=== PATIENT | female | born 1990 | race Caucasian/White ===

== ENCOUNTER 2016-06-27 18:15 | Emergency (ER) | payer SELFPAY ==
[~2016-06-27 18:15] MED LIST: TOBR5DRO6 AS
[2016-06-27 18:28] VITALS: BP 130/77
[2016-06-27] MEDS ORDERED: IV NORMAL SALINE 1000ML BAG 1,000 ML IV ONE (19:00)
[2016-06-27] MEDS ORDERED: METOCLOPRAMIDE HCL 10 MG/2 ML VIAL. IV ONE (19:00)
[2016-06-27] MEDS ORDERED: DIPHENHYDRAMINE 50 MG/ML VIAL IVP ONE (19:00)
[2016-06-27 19:27] LABS: NEG OBC UR NEG; POS OBC UR POS
--- NOTE | 2016-06-27 20:26 | PHYS DOC ---
Past Medical History Past Medical History: Asthma, Migraines, Other Additional Past Medical Histor: murmur Past Surgical History: Appendectomy, Additional Past Surgical Histo: umbilical hernia Alcohol Use: None Drug Use: None Adult General Chief Complaint Chief Complaint: HEADACHE HPI HPI 18-year-old female presenting to the emergency department with a migraine for 4 days. She reports is similar to her previous headaches. Vision changes or numbness weakness or tingling. She denies it being thunderclap headache. Her pain is sharp severe nonradiating and without alleviating factors. She is tried acetaminophen without relief. Review of Systems Review of Systems Negative for numbness weakness tingling chest pain shortness of breath. All other review of systems is negative unless otherwise noted in history of present illness. Current Medications Current Medications Current Medications Medications (Trade) Dose Ordered Sig/[place] Start Time Stop Time Status Last Admin Dose Admin Diphenhydramine HCl 50 mg 50 mg 1X ONCE 06/27/16 19:00 06/27/16 19:02 DC 06/27/16 19:10 50 MG Metoclopramide HCl (Reglan) 20 mg 1X ONCE 06/27/16 19:00 06/27/16 19:02 DC 06/27/16 19:10 20 MG Sodium Chloride (Iv Sodium Chloride 0.9% 1000ml Bag) 1,000 ml @ 1,000 mls/hr 1X ONCE 06/27/16 19:00 06/27/16 19:59 DC 06/27/16 19:11 1,000 MLS/HR Allergies Allergies Allergies Coded Allergies Type Severity Reaction Last Updated Verified acetaminophen Allergy Intermediate 07/05/15 No propoxyphene Allergy Intermediate 07/05/15 No zolpidem Allergy Intermediate 07/05/15 No Physical Exam Physical Exam Constitutional: Well developed, well nourished, no acute distress, non-toxic appearance. [] HENT: Normocephalic, atraumatic, bilateral external ears normal, oropharynx moist, no oral exudates, nose normal. [] Eyes: PERRLA, EOMI, conjunctiva normal, no discharge. [] Neck: Normal range of motion, no tenderness, supple, no stridor. [] Cardiovascular:Heart rate regular rhythm, no murmur [] Lungs & Thorax: Bilateral breath sounds clear to auscultation [] Abdomen: Bowel sounds normal, soft, no tenderness, no masses, no pulsatile masses. [] Skin: Warm, dry, no erythema, no rash. [] Back: No tenderness, no CVA tenderness. [] Extremities: No tenderness, no cyanosis, no clubbing, ROM intact, no edema. [] Neurologic: Neuro exam: Mental status: Awake oriented and alert x3 Cranial nerves: Extraocular movements intact, eyebrows lex bilaterally smile symmetric, uvula elevation, shoulder shrug intact, tongue protrusion normal Sensation: equal and normal in all extremities Strength: 5/5 in upper and lower extremities bilaterally Psychologic: Affect normal, judgement normal, mood normal. [] Current Patient Data Vital Signs Vital Signs Date Time Temp Pulse Resp B/P Pulse Ox O2 Delivery O2 Flow Rate FiO2 06/27/16 18:28 98.2 83 16 130/77 100 Room Air 98.2 Lab Values Laboratory Tests Test 06/27/16 18:25 Urine Test Negative (NEG) EKG EKG [] Radiology/Procedures Radiology/Procedures [] Course & Med Decision Making Course & Med Decision Making Pertinent Labs and Imaging studies reviewed. (See chart for details) [] 18-year-old female presenting with migraine similar to previous migraines. Minimal neurologic exam. Patient was treated with IV fluids along with Reglan and Benadryl. On reevaluation her symptoms had improved and she was subsequent discharged home to follow up with her PCP. Dragon Disclaimer Dragon Disclaimer This electronic medical record was generated, in whole or in part, using a voice recognition dictation system. Departure Departure Impression: Primary Impression: Migraine Disposition: 01 HOME, SELF-CARE Condition: STABLE Referrals: BANG ROMAN MD (PCP) Patient Instructions: Migraine Headache Additional Instructions: Thank you for allowing us to participate in your care today. Followup with your primary care physician in 3 days if your symptoms do not improve. If you do not have a primary care provider you can ask for a list of our primary care providers. Return to the emergency department you have any new or concerning findings. This should be evaluated by the primary care physician and any necessary consulting services for continued management within a few days after discharge. Return to emergency room if you have any new or concerning symptoms including but not limited to fever, chills, nausea, vomiting, intractable pain, any new rashes, chest pain, shortness of air, uncontrolled bleeding, difficulty breathing, and/or vision loss. ARYA STRAUSS MD Jun 27, 2016 20:26
== END 2016-06-27 20:33 | disposition home or self-care (01) ==
LOC: ER 18:15
DX: G43.909 Migraine, unspecified, not intractable, without status migrainosus (principal); J45.909 Unspecified asthma, uncomplicated; Z90.49 Acquired absence of other specified parts of digestive tract; Z88.8 Allergy status to other drugs, medicaments and biological substances
CPT/HCPCS: 81025; 96361; 96374; 96375; 99284; J1200; J2765; J7030

== ENCOUNTER 2017-03-10 08:54 | Emergency (ER) | payer SELFPAY ==
[~2017-03-10] VITALS: Ht 160 cm; Wt 63.5 kg
[2017-03-10 09:08] VITALS: BP 115/65
[2017-03-10] MEDS ORDERED: IBUP-1060 PO (09:56)
--- NOTE | 2017-03-10 09:56 | PHYS DOC ---
Past Medical History Past Medical History: Asthma, Migraines, Other Additional Past Medical Histor: murmur Past Surgical History: Appendectomy, , Other Additional Past Surgical Histo: umbilical hernia Additional Information: 0.5 PPD Alcohol Use: None Drug Use: None Adult General Chief Complaint Chief Complaint: Neck Pain HPI HPI Patient is a 27 year old female who presents with history of asthma who presents with multiple medical head that she noted yesterday. Patient denies any fever. Denies any sore throat coughing or congestion. Denies any ear pain. Review of Systems Review of Systems Constitutional: Denies fever or chills [] Eyes: Denies change in visual acuity, redness, or eye pain [] HENT:Knot on the back of the head. Denies nasal congestion or sore throat [] Respiratory: Denies cough or shortness of breath [] Cardiovascular: No additional information not addressed in HPI [] GI: Denies abdominal pain, nausea, vomiting, bloody stools or diarrhea [] : Denies dysuria or hematuria [] Musculoskeletal: Denies back pain or joint pain [] Integument: Denies rash or skin lesions [] Neurologic: Denies headache, focal weakness or sensory changes [] Endocrine: Denies polyuria or polydipsia [] Allergies Allergies Allergies Coded Allergies Type Severity Reaction Last Updated Verified acetaminophen Allergy Intermediate 07/05/15 No propoxyphene Allergy Intermediate 07/05/15 No zolpidem Allergy Intermediate 07/05/15 No Physical Exam Physical Exam Constitutional: Well developed, well nourished, no acute distress, non-toxic appearance. [] HENT: Normocephalic, atraumatic, bilateral external ears normal, oropharynx moist, no oral exudates, nose normal. [] Right posterior occipital with a tiny indurated consistent of enlarged lymph node. The area is tender to touch but not erythematous or fluctuance. Eyes: PERRLA, EOMI, conjunctiva normal, no discharge. [] Neck: Normal range of motion, no tenderness, supple, no stridor. [] Cardiovascular:Heart rate regular rhythm, no murmur [] Lungs & Thorax: Bilateral breath sounds clear to auscultation [] Abdomen: Bowel sounds normal, soft, no tenderness, no masses, no pulsatile masses. [] Skin: Warm, dry, no erythema, no rash. [] Back: No tenderness, no CVA tenderness. [] Extremities: No tenderness, no cyanosis, no clubbing, ROM intact, no edema. [] Neurologic: Alert and oriented X 3, normal motor function, normal sensory function, no focal deficits noted. [] Psychologic: Affect normal, judgement normal, mood normal. [] Current Patient Data Vital Signs Vital Signs Date Time Temp Pulse Resp B/P (MAP) Pulse Ox O2 Delivery O2 Flow Rate FiO2 03/10/17 09:08 98.1 93 16 115/65 (82) 98 Room Air 98.1 EKG EKG [] Radiology/Procedures Radiology/Procedures [] Course & Med Decision Making Course & Med Decision Making Pertinent Labs and Imaging studies reviewed. (See chart for details) Patient has a large right occipital lymphadenopathy. Discharged with ibuprofen. Instructed to follow-up with the PCP in one week if symptoms persist. Dragon Disclaimer Dragon Disclaimer This electronic medical record was generated, in whole or in part, using a voice recognition dictation system. Departure Departure Impression: Primary Impression: Lymphadenopathy of head and neck Disposition: 01 HOME, SELF-CARE Condition: STABLE Referrals: BANG ROMAN MD (PCP) Follow-up with your doctor in one week. Patient Instructions: General Headache Without Cause, [id number] Additional Instructions: You were seen for an enlarged lymph node on the back of your head. Please take ibuprofen 3 times a day. You can apply warm compresses to the area 3 times a day. Follow-up with your doctor in 1-2 weeks if symptoms continue. Scripts Ibuprofen (IBUPROFEN) 800 Mg Tablet 800 MG PO PRN Q6HRS Y for INFLAMMATION, #30 TAB Prov: MEAGAN AMADO APRN 03/10/17 MEAGAN AMADO APRN Mar 10, 2017 09:56
[2017-03-10 10:19] LABS: NEGATIVE OBC STREP NEG; POSITIVE OBC STREP POS
== END 2017-03-10 10:05 | disposition home or self-care (01) ==
LOC: ER 08:54
DX: R59.0 Localized enlarged lymph nodes (principal); J45.909 Unspecified asthma, uncomplicated; G43.909 Migraine, unspecified, not intractable, without status migrainosus; F17.200 Nicotine dependence, unspecified, uncomplicated; Z88.6 Allergy status to analgesic agent; Z88.8 Allergy status to other drugs, medicaments and biological substances
CPT/HCPCS: 87070; 87880; 99283

== ENCOUNTER 2017-09-14 22:22 | Emergency (ER) | payer SELFPAY, OTHER ==
[2017-09-14] MEDS: IPRATRPIUM/ALBUTEROL 0.5/2.5MG 3 ML NEBU. NEB ×2 (22:37→22:53)
== END 2017-09-14 23:19 | disposition home or self-care (01) ==
LOC: ER 23:19
DX: J45.21 Mild intermittent asthma with (acute) exacerbation (principal); G43.909 Migraine, unspecified, not intractable, without status migrainosus; Z88.6 Allergy status to analgesic agent; Z88.8 Allergy status to other drugs, medicaments and biological substances; Z79.899 Other long term (current) drug therapy; Z90.49 Acquired absence of other specified parts of digestive tract
CPT/HCPCS: 94640; 99284-25; J7620

== ENCOUNTER 2017-10-26 20:05 | Emergency (ER) | payer SELFPAY ==
[2017-10-26 20:59] LABS: URINE HCG POC HCG NEGATIVE (Negative)
[2017-10-26 21:10] LABS: BILIRUBIN,URINE SMALL (NEG); CLARITY,URINE CLEAR; GLUCOSE,URINE NEGATIVE (NEG); NITRITE,URINE NEGATIVE (NEG); PROTEIN,URINE 100 mg/dL (NEG-TRACE)
[2017-10-26] MEDS: PENICILLIN G BENZATHINE LA 1,200,000 UNIT/2 ML DISP.SYRIN. IM (21:12)
[2017-10-26 21:15] LABS: COLOR,URINE DK YELLOW
[2017-10-26 21:17] LABS: BACTERIA,URINE FEW /HPF (0-FEW); RBC,URINE 0 /HPF (0-2); SQUAMOUS EPITHELIAL CELL,UR MANY /LPF; WBC,URINE OCC /HPF (0-4)
[2017-10-26 21:25] LABS: INFLUENZA A PATIENT NEGATIVE (NEGATIVE); INFLUENZA B PATIENT NEGATIVE (NEGATIVE); OBC FLU VALID
[2017-10-27 06:15] LABS: NEGATIVE OBC STREP NEG; POSITIVE OBC STREP POS
== END 2017-10-26 21:19 | disposition home or self-care (01) ==
LOC: ER 21:19
DX: J02.0 Streptococcal pharyngitis (principal); G43.909 Migraine, unspecified, not intractable, without status migrainosus; Z90.89 Acquired absence of other organs
CPT/HCPCS: 81001; 81025; 87804; 87804-59; 87880; 96372; 99284; J0561

== ENCOUNTER 2019-01-06 15:13 | Emergency (ER) | payer SELFPAY ==
[~2019-01-06] VITALS: Ht 157.5 cm; Wt 76.2 kg
[~2019-01-06 15:13] MED LIST changes: +ALBU1.25 NEB; +ALBU2.5V8 INH; +IBUP-1060 PO; +PRED50TA PO
[2019-01-06 16:00] VITALS: BP 109/73
--- NOTE | 2019-01-06 16:52 | RAD ---
EXAM: Left knee, 4 views. HISTORY: Pain. COMPARISON: None. FINDINGS: 4 views left knee are obtained. There is no fracture, dislocation or subluxation. There is no joint effusion. There is a small bone island within the medial femoral condyle. There is a small ossific density anterior to the tibial spines of the lateral projection, likely a bony ridge rather than intra-articular osteophyte or loose body. IMPRESSION: No acute osseous finding. Electronically signed by: Naomy Cintron MD (01/06/2019 4:49 PM) [facility], [address]
--- NOTE | 2019-01-06 17:19 | PHYS DOC ---
Past Medical History Past Medical History: Asthma, Migraines, Other Additional Past Medical Histor: murmur Past Surgical History: Appendectomy, , Other Additional Past Surgical Histo: umbilical hernia Alcohol Use: None Drug Use: None Adult General Chief Complaint Chief Complaint: KNEE SWELLING HPI HPI Patient is a 28 year old female who presents with a sharp intermittent 8 out of 10 left anterior knee pain that began yesterday while walking her children at school. Patient denies falling. Patient states the pain is worse on flexion and extension of the knee. Patient states immobilization has relieved some of the pain. Review of Systems Review of Systems Constitutional: Denies fever or chills [] Musculoskeletal: Reports left knee pain Integument: Denies rash or skin lesions [] Neurologic: Denies headache, focal weakness or sensory changes [] All other systems were reviewed and found to be within normal limits, except as documented in this note. Allergies Allergies Allergies Coded Allergies Type Severity Reaction Last Updated Verified acetaminophen Allergy Intermediate 07/05/15 No propoxyphene Allergy Intermediate 07/05/15 No zolpidem Allergy Intermediate 07/05/15 No Physical Exam Physical Exam Constitutional: Well developed, well nourished, no acute distress, non-toxic appearance. [] Skin: Warm, dry, no erythema, no rash. [] Back: No tenderness, no CVA tenderness. [] Extremities: Left anterior knee with slight swelling, tenderness on palpation of the left anterior knee. Full range of motion to the left knee, negative Edu sign, negative Keegan sign, negative anterior-posterior drawer sign. +2 left pedal pulse. 2 seconds the left lower extremity. Neurologic: Alert and oriented X 3, normal motor function, normal sensory function, no focal deficits noted. [] Psychologic: Affect normal, judgement normal, mood normal. [] Current Patient Data Vital Signs Vital Signs Date Time Temp Pulse Resp B/P (MAP) Pulse Ox O2 Delivery O2 Flow Rate FiO2 01/06/19 16:00 98.1 99 18 109/73 (85) 96 Room Air 98.1 EKG EKG [] Radiology/Procedures Radiology/Procedures [] Course & Med Decision Making Course & Med Decision Making Pertinent Labs and Imaging studies reviewed. (See chart for details) This is a 28-year-old female patient presented to the ED today with left knee pain that began last night. No known injury. Left knee x-rays interpreted by radiologist are negative for any acute findings. Laci bandage recommended. Ice elevation encouraged. OTC pain relievers. Orthopedic doctor provided. Neftali Disclaimer Neftali Disclaimer This electronic medical record was generated, in whole or in part, using a voice recognition dictation system. Departure Departure Impression: Primary Impression: Left knee sprain Disposition: HOME, SELF-CARE Condition: STABLE Referrals: BANG ROMAN MD (PCP) EJLANI SAHNI MD Follow up in 1-2 weeks Patient Instructions: Knee Sprain, [id number] Additional Instructions: You were evaluated in the emergency room for left knee pain. Left knee x-rays we re negative for any acute findings. Try to ice and elevate the extremity. You can apply laci wrap to the knee as tolerated. Take [id number] pain relievers as needed for pain. Follow-up with your own doctor the provided orthopedic doctor in 1-2 weeks. Problem Qualifiers Primary Impression: Left knee sprain Encounter type: initial encounter Involved ligament of knee: unspecified ligament Qualified Codes: S83.92XA - Sprain of unspecified site of left knee, initial encounter MEAGAN AMADO [employer]ING [employer] Jan 06, 2019 17:19
== END 2019-01-06 17:27 | disposition home or self-care (01) ==
LOC: ER 15:13
DX: S83.92XA Sprain of unspecified site of left knee, initial encounter (principal); J45.909 Unspecified asthma, uncomplicated; G43.909 Migraine, unspecified, not intractable, without status migrainosus; Z88.8 Allergy status to other drugs, medicaments and biological substances; Z88.6 Allergy status to analgesic agent; X50.9XXA Other and unspecified overexertion or strenuous movements or postures, initial encounter; Y93.01 Activity, walking, marching and hiking; Y92.218 Other school as the place of occurrence of the external cause; Y99.8 Other external cause status
CPT/HCPCS: 73564; 99284

== ENCOUNTER 2019-02-08 19:10 | Emergency (ER) | payer SELFPAY ==
[~2019-02-08] VITALS: Ht 157.5 cm; Wt 74.8 kg
[2019-02-08 19:20] VITALS: BP 124/74
[2019-02-08] MEDS ORDERED: DEXAMETHASONE SOD PHOS 20 MG/5 ML VIAL. IV ONE (20:00)
[2019-02-08] MEDS ORDERED: KETOROLAC 15 MG/ML VIAL. IV ONE (20:00)
[2019-02-08] MEDS ORDERED: IV NORMAL SALINE 1000ML BAG 1,000 ML IV ONE (20:00)
[2019-02-08] MEDS ORDERED: diphenhydrAMINE 50 MG/ML VIAL IVP ONE (20:00)
[2019-02-08] MEDS ORDERED: METOCLOPRAMIDE HCL 10 MG/2 ML VIAL. IV ONE (20:00)
--- NOTE | 2019-02-08 20:13 | PHYS DOC ---
Past Medical History Past Medical History: Asthma, Migraines, Other Additional Past Medical Histor: murmur Past Surgical History: Appendectomy, , Other Additional Past Surgical Histo: umbilical hernia Alcohol Use: None Drug Use: None Adult General Chief Complaint Chief Complaint: HEADACHE HPI HPI Patient is a 28 year old migraine who presents with sore throat and generalized headache. Pt reports sore throat 2 days ago and developed cervicogenic SAGE started yesterday. Today, pt reports having some productive cough with green discharge. Pt also endorses mild ear pain b/l and fatigue and muscle ache. She denies any F/C, N/V. She took some Tylenol today which helped minimally. Her SAGE is not maximal at onset. Review of Systems Review of Systems Constitutional: Denies fever or chills Eyes: Denies redness or eye pain HENT: Positive nasal congestion and sore throat Respiratory: Positive cough. No shortness of breath Cardiovascular: Denies chest pain or palpitations GI: Denies abdominal pain, nausea, or vomiting : Denies dysuria or hematuria Musculoskeletal: Denies back pain or joint pain Integument: Denies rash or skin lesions Neurologic: Denies headache, focal weakness or sensory changes Complete systems were reviewed and found to be within normal limits, except as documented in this note. Current Medications Current Medications Current Medications Medications (Trade) Dose Ordered Sig/[place] Start Time Stop Time Status Last Admin Dose Admin Dexamethasone Sodium Phosphate (Decadron) 10 mg 1X ONCE 02/08/19 20:00 02/08/19 20:01 DC 02/08/19 20:21 10 MG Diphenhydramine HCl (Benadryl) 50 mg 1X ONCE 02/08/19 20:00 02/08/19 20:01 DC 02/08/19 20:21 50 MG Ketorolac Tromethamine (Toradol 15mg Vial) 15 mg 1X ONCE 02/08/19 20:00 02/08/19 20:01 DC 02/08/19 20:21 15 MG Metoclopramide HCl (Reglan Vial) 10 mg 1X ONCE 02/08/19 20:00 02/08/19 20:01 DC 02/08/19 20:21 10 MG Sodium Chloride 1,000 ml @ 1,000 mls/hr 1X ONCE 02/08/19 20:00 02/08/19 20:59 DC 02/08/19 20:21 1,000 MLS/HR Allergies Allergies Allergies Coded Allergies Type Severity Reaction Last Updated Verified acetaminophen Allergy Intermediate 07/05/15 No propoxyphene Allergy Intermediate 07/05/15 No zolpidem Allergy Intermediate 07/05/15 No Physical Exam Physical Exam Constitutional: Well developed, well nourished, no acute distress, non-toxic appearance HENT: Normocephalic, atraumatic, mildly erythematous and exudative oropharynx Eyes: PERRL, EOMI, conjunctiva normal, no discharge Neck: Normal range of motion, mild tenderness and LAD, supple Cardiovascular: Heart rate normal, regular rhythm Lungs & Thorax: Bilateral breath sounds clear to auscultation, no wheezing Abdomen: Soft, no tenderness Skin: Warm, dry, no erythema, no rash Back: No tenderness, no CVA tenderness Extremities: No tenderness, ROM intact, no edema Neurologic: Alert and oriented X 3, normal motor function, normal sensory function, no focal deficits noted Psychologic: Affect normal, judgement normal, mood normal Current Patient Data Vital Signs Vital Signs Date Time Temp Pulse Resp B/P (MAP) Pulse Ox O2 Delivery O2 Flow Rate FiO2 02/08/19 19:20 99.8 106 16 124/74 (91) 98 Room Air 99.8 Lab Values Laboratory Tests Test 02/08/19 19:32 02/08/19 20:11 POC Urine HCG, Qualitative Hcg negative (Negative) Heterophil Agglutinins Negative (NEGATIVE) EKG EKG [] Radiology/Procedures Radiology/Procedures [] Course & Med Decision Making Course & Med Decision Making Pertinent Labs and Imaging studies reviewed. (See chart for details) [] Dragon Disclaimer Dragon Disclaimer This electronic medical record was generated, in whole or in part, using a voice recognition dictation system. Departure Departure Impression: Primary Impression: Strep pharyngitis Additional Impression: Headache Disposition: 01 HOME, SELF-CARE Condition: STABLE Referrals: BANG ROMAN MD (PCP) Patient Instructions: Migraine Headache, [id number], Strep Throat, Group A Streptococcus Additional Instructions: You have been given a one time dose of a very strong antibiotic. No further antibiotic therapy is required. Problem Qualifiers Additional Impression: Headache Headache type: unspecified Headache chronicity pattern: acute headache Intractability: not intractable Qualified Codes: R51 - Headache GARRETT LOUIS DO Feb 08, 2019:13
[2019-02-08 20:26] LABS: MONONUCLEOSIS PATIENT NEGATIVE (NEGATIVE)
[2019-02-08] MEDS ORDERED: PENICILLIN G BENZATHINE LA 1,200,000 UNIT/2 ML DISP.SYRIN. IM ONE (21:30)
--- NOTE | 2019-02-08 22:31 | RAD ---
PA and lateral chest radiographs 02/08/2019 Clinical History: Cough. PA and lateral digital radiographs of the chest were obtained. Comparison study is dated 07/05/2015. The cardiac and mediastinal silhouettes are within normal limits in size and configuration. No pulmonary infiltrate is seen. No pleural effusion or pneumothorax is noted. The osseous structures are grossly intact. Impression: No radiographic evidence of active cardiopulmonary disease. Electronically signed by: Saúl Norton MD (02/08/2019 10:28 PM) [facility]
== END 2019-02-08 22:05 | disposition home or self-care (01) ==
LOC: ER 19:10
DX: J02.0 Streptococcal pharyngitis (principal); B95.0 Streptococcus, group A, as the cause of diseases classified elsewhere; G43.909 Migraine, unspecified, not intractable, without status migrainosus; J45.909 Unspecified asthma, uncomplicated; Z88.6 Allergy status to analgesic agent; Z88.8 Allergy status to other drugs, medicaments and biological substances
CPT/HCPCS: 71046; 81025; 86308; 87880; 96372; 96374; 96375; 99285; J0561; J1100; J1200; J1885; J2765; J7030

== ENCOUNTER 2020-12-28 16:33 | Emergency (ER) | payer SELFPAY ==
[~2020-12-28] VITALS: Ht 162.6 cm; Wt 76.2 kg
[~2020-12-28 16:33] MED LIST changes: +ALBU2.5V8 IH
[2020-12-28] MEDS ORDERED: NEOMYCIN/POLYMYXIN/HC OTIC SUSPENSION 10ML BOTTLE. AD ONE (20:30)
--- NOTE | 2020-12-28 20:35 | ED.ADGEN ---
Past Medical History Past Medical History: Asthma, Migraines, Other Additional Past Medical Histor: murmur Past Surgical History: Appendectomy, , Other Additional Past Surgical Histo: umbilical hernia Smoking Status: Current Every Day Smoker Alcohol Use: None Drug Use: None General Adult EDM: Chief Complaint: EARACHE/EAR PAIN HPI: HPI: Patient is a 30 year old female coming in for right ear pain over the past few days this is no worse today after she showered feeling she has water in it. Patient uses Q-tips regularly to try to "scrub out" her ears. Patient says the pain is worse with eating and pulling at her ear. Denies pain in the other ear. Patient has a history of recurrent ear infections as a child but never had tubes placed. No fever some complaints denies any congestion. Review of Systems: Review of Systems: All other systems within normal limits except for as noted in the HPI Current Medications: Current Medications Medications (Trade) Dose Ordered Sig/[place] Start Time Stop Time Status Last Admin Dose Admin Neomycin/ Polymyxin/ Hydrocortisone (Cortisporin Otic) 1 drop 1X ONCE 12/28/20 20:30 12/28/20 20:31 DC Allergies: Allergies: Allergies Coded Allergies Type Severity Reaction Last Updated Verified acetaminophen Allergy Intermediate 07/05/15 No propoxyphene Allergy Intermediate 07/05/15 No zolpidem Allergy Intermediate 07/05/15 No Physical Exam: PE: Constitutional: Well developed, well nourished, no acute distress, non-toxic appearance. [] HENT: Normocephalic, atraumatic, bilateral external ears normal, nose normal. Right TM erythematous without significant debris, cholesteatoma on TM without bulging or purulence. Left TM mildly erythematous, cholesteatoma on TM. No ma stoid erythema or bogginess, pain elicited by pulling on tragus [] Eyes: PERRLA, conjunctiva normal, no discharge. [] Neck: No rigidity, supple, no stridor. [] Cardiovascular: Regular rate and rhythm, brisk cap refill [] Lungs & Thorax: Non labored symmetric respirations, no tachypnea or respiratory distress [] Abdomen: Soft, nondistended. Skin: Warm, dry, no erythema, no rash. [] Back: Unremarkable Extremities: No deformities, range of motion grossly intact, no lower extremity edema [] Neurologic: Alert and oriented X 3, no focal deficits noted. [] Psychologic: Affect normal, judgement normal, mood normal. [] Current Patient Data: Vital Signs: Vital Signs Date Time Temp Pulse Resp B/P (MAP) Pulse Ox O2 Delivery O2 Flow Rate FiO2 12/28/20 17:26 98.6 89 16 113/68 (86) 96 Room Air 98.6 EKG: EKG: [] Heart Score: C/O Chest Pain: No Risk Factors: Risk Factors: DM, Current or recent (<one month) smoker, HTN, HLP, family history of CAD, obesity. Risk Scores: Score 0 - 3: 2.5% MACE over next 6 weeks - Discharge Home Score 4 - 6: 20.3% MACE over next 6 weeks - Admit for Clinical Observation Score 7 - 10: 72.7% MACE over next 6 weeks - Early Invasive Strategies Radiology/Procedures: Radiology/Procedures: [] Course & Med Decision Making: Course & Med Decision Making Pertinent Labs and Imaging studies reviewed. (See chart for details) [] Dragon Disclaimer: Dragon Disclaimer: This electronic medical record was generated, in whole or in part, using a voice recognition dictation system. Departure Departure Disposition: HOME / SELF CARE / HOMELESS Condition: STABLE Referrals: MAGDALENO ANDRADE MD Patient Instructions: Otitis Externa Additional Instructions: Corticosporin drops: 4 drops in right ear 3-4 times a day for 7 days. LING PIERRE MD Dec 28, 2020 20:34
[2020-12-28 21:06] VITALS: BP 114/72
== END 2020-12-28 21:14 | disposition home or self-care (01) ==
LOC: ER 16:33
DX: H92.01 Otalgia, right ear (principal); J45.909 Unspecified asthma, uncomplicated; G43.909 Migraine, unspecified, not intractable, without status migrainosus; F17.200 Nicotine dependence, unspecified, uncomplicated; Z88.6 Allergy status to analgesic agent; Z88.8 Allergy status to other drugs, medicaments and biological substances
CPT/HCPCS: 99283

== ENCOUNTER 2021-01-23 12:13 | Observation (INO) | payer SELFPAY ==
[~2021-01-23] VITALS: Ht 157.5 cm; Wt 71.5 kg
[2021-01-23] MEDS ORDERED: ALBUTEROL SULFATE 2.5 MG/3 ML NEBU. CONT NEB ONE ×2 (13:30→15:30)
[2021-01-23] MEDS ORDERED: DEXAMETHASONE SOD PHOS 20 MG/5 ML VIAL. IV ONE (13:30)
--- NOTE | 2021-01-23 13:51 | RAD ---
EXAM: Chest, single view. HISTORY: Shortness of air. COMPARISON: 07/27/2019. FINDINGS: A frontal view of the chest is obtained. There is no infiltrate, effusion or pneumothorax. The heart is normal in size. IMPRESSION: No acute pulmonary finding. Electronically signed by: Naomy Cintron MD (01/23/2021 1:48 PM) [id number]
--- NOTE | 2021-01-23 13:58 | PHYS DOC ---
Past Medical History Past Medical History: Asthma, Migraines, Other Additional Past Medical Histor: murmur (LEATHA BRYAN CAUL DRESSER) Past Surgical History: Appendectomy, , Other Additional Past Surgical Histo: umbilical hernia (LEATHA BRYAN CAUL DRESSER) Smoking Status: Current Every Day Smoker Alcohol Use: None Drug Use: None (LEATHA BRYAN CAUL DRESSER) General Adult EDM: Chief Complaint: SHORTNESS OF BREATH HPI: HPI: Patient is a 30 year old female who presents with shortness of breath for the last week that is worsened. She states that she has been using her inhaler and nebulizer but it is not helping. She states that she has not been able to to use her Spiriva inhaler because her primary care will not give it to her for free as they have been. She has a history of asthma and smoking. Denies vaccination for Covid. Patient denies fever, syncope, chest pain, headache, dizziness, abdominal pain, nausea, vomiting, diarrhea. (LEATHA BRYAN CAUL DRESSER) Review of Systems: Review of Systems: Constitutional: Denies fever or chills. [] Eyes: Denies change in visual acuity. [] HENT: Denies nasal congestion or sore throat. [] Respiratory: +cough or +shortness of breath. [] Cardiovascular: Denies chest pain or edema. [] GI: Denies abdominal pain, nausea, vomiting, bloody stools or diarrhea. [] : Denies dysuria. [] Musculoskeletal: Denies back pain or joint pain. [] Integument: Denies rash. [] Neurologic: Denies headache, focal weakness or sensory changes. [] Endocrine: Denies polyuria or polydipsia. [] Lymphatic: Denies swollen glands. [] Psychiatric: Denies depression or anxiety. [] (LEATHA BRYAN CAUL DRESSER) Heart Score: C/O Chest Pain: No Risk Factors: Risk Factors: DM, Current or recent (<one month) smoker, HTN, HLP, family history of CAD, obesity. Risk Scores: Score 0 - 3: 2.5% MACE over next 6 weeks - Discharge Home Score 4 - 6: 20.3% MACE over next 6 weeks - Admit for Clinical Observation Score 7 - 10: 72.7% MACE over next 6 weeks - Early Invasive Strategies (LEATHA BRYAN APRN) Current Medications: Current Medications Medications (Trade) Dose Ordered Sig/[place] Start Time Stop Time Status Last Admin Dose Admin Albuterol Sulfate (Ventolin Neb Soln) 10 mg 1X ONCE 01/23/21 13:30 01/23/21 13:31 DC 01/23/21 13:41 10 MG Dexamethasone Sodium Phosphate (Decadron) 10 mg 1X ONCE 01/23/21 13:30 01/23/21 13:31 DC 01/23/21 13:39 10 MG (LEATHA BRYAN CAUL DRESSER) Allergies: Allergies: Allergies Coded Allergies Type Severity Reaction Last Updated Verified acetaminophen Allergy Intermediate 07/05/15 No propoxyphene Allergy Intermediate 07/05/15 No zolpidem Allergy Intermediate 07/05/15 No (LEATHA BRYAN APRN) Physical Exam: PE: Constitutional: Well developed, well nourished, no acute distress, non-toxic appearance. [] HENT: Normocephalic, atraumatic, bilateral external ears normal, oropharynx moist, no oral exudates, nose normal. [] Eyes: PERRLA, EOMI, conjunctiva normal, no discharge. [] Neck: Normal range of motion, no tenderness, supple, no stridor. [] Cardiovascular:Heart rate regular rhythm, no murmur [] Lungs & Thorax: Bilateral inspiratory expiratory breath sounds bilaterally to auscultation [] Abdomen: Bowel sounds normal, soft, no tenderness, no masses, no pulsatile masses. [] Skin: Warm, dry, no erythema, no rash. [] Back: No tenderness, no CVA tenderness. [] Extremities: No tenderness, no cyanosis, no clubbing, ROM intact, no edema. [] Neurologic: Alert and oriented X 3, normal motor function, normal sensory function, no focal deficits noted. [] Psychologic: Affect normal, judgement normal, mood normal. [] (LEATHA BRYAN APRN) Current Patient Data: Vital Signs: Vital Signs Date Time Temp Pulse Resp B/P (MAP) Pulse Ox O2 Delivery O2 Flow Rate FiO2 01/23/21 13:43 96 Room Air 01/23/21 12:25 99.2 96 19 132/67 (86) 99.2 (LEATHA BRYAN APRN) EKG: EKG: [] (LEATHA BRYAN APRN) Radiology/Procedures: Radiology/Procedures: [] Impression: [facility] [address] [place] [address] IMAGING REPORT Signed PATIENT: MALENA PRATHER ACCOUNT: [id number] : 1990 LOCATION: ER AGE: 30 SEX: F EXAM STATUS: REG ER ORD. PHYSICIAN: LEATHA BRYAN APRN REASON: SOA PROCEDURE: PORTABLE CHEST 1V EXAM: Chest, single view. HISTORY: Shortness of air. COMPARISON: 07/27/2019. FINDINGS: A frontal view of the chest is obtained. There is no infiltrate, effusion or pneumothorax. The heart is normal in size. IMPRESSION: No acute pulmonary finding. Electronically signed by: Naomy Macdonald MD (01/23/2021 1:48 PM) [id number] DICTATED and SIGNED BY: NAOMY MACDONALD MD DATE: 01/23/21 [id number] (LEATHA BRYAN APRN) Course & Med Decision Making: Course & Med Decision Making Pertinent Labs and Imaging studies reviewed. (See chart for details) COVID-19 CRITERIA: The patient was evaluated during the global COVID-19 pandemic, and that diagnosis was suspected/considered upon their initial presentation. Their evaluation, treatment and testing was consistent with current guidelines for patients who present with complaints or symptoms that may be related to COVID-19. See HPI. Alert and oriented x4. Ambulatory steady gait. Speaks in full clear sentences. Skin pink warm and dry. Lungs have inspiratory expiratory loud wheezing and coarse sounds with some diminished bases. Cap refill less than 2 seconds. Vital signs within normal limits. After hour-long albuterol treatment and dexamethasone patient is still having respiratory expiratory wheezing and states that she feels only slightly better. Her vital signs remain normal. After speaking with Dr. Red I have ordered magnesium and another hour-long breathing treatment. Patient is still having loud coarse respiratory inspiratory expiratory wheezing. She states she is not feeling much better. Patient is admitted to the hospitalist. She is stable and in no distress. [] (LEATHA BRYAN APRN) Course & Med Decision Making I have reviewed and agree with all pertinent clinical information above including history, exam, and recommendations. Sammy Red DO (SAMMY RED DO) Neftali Disclaimer: Neftali Disclaimer: This electronic medical record was generated, in whole or in part, using a voice recognition dictation system. (LEATHA BRYAN APRN) Departure Departure Impression: Primary Impression: Asthma exacerbation Qualified Codes: J45.31 - Mild persistent asthma with (acute) exacerbation Disposition: ADMITTED INPATIENT Admitting Physician: HIMGeneva (LEATHA BRYAN APRN) Condition: STABLE Referrals: NO PCP (PCP) LEATHA BRYAN APRN Jan 23, 2021 13:58 SAMMY RED DO Jan 23, 2021 18:26
[2021-01-23] MEDS ORDERED: MAGNESIUM SULFATE 2GM 50 ML IV ONE (15:30)
[2021-01-23] MEDS ORDERED: IV NORMAL SALINE 1000ML BAG 1,000 ML IV ONE (15:30)
[2021-01-23 16:05] LABS: BASO # 0.1 x10^3/uL (0.0-0.2); BASO % 1 % (0-3); EOS # 0.2 x10^3/uL (0.0-0.7); EOS % 2 % (0-3); HEMATOCRIT 40.3 % (36.0-47.0); HEMOGLOBIN 13.6 g/dL (12.0-15.5); LYMPH # 1.1 x10^3/uL (1.0-4.8); LYMPH % 14 % (24-48); MEAN CORPUSCULAR HEMOGLOBIN 30 pg (25-35); MEAN CORPUSCULAR HGB CONC 34 g/dL (31-37); MEAN CORPUSCULAR VOLUME 88 fL (79-100); MONO # 0.1 x10^3/uL (0.0-1.1); MONO % 2 % (0-9); NEUT # 6.9 x10^3/uL (1.8-7.7); NEUT % 82 % (31-73); PLATELET COUNT 319 x10^3/uL (140-400); RED BLOOD COUNT 4.61 x10^6/uL (3.50-5.40); RED CELL DISTRIBUTION WIDTH 13.8 % (11.5-14.5); WHITE BLOOD COUNT 8.4 x10^3/uL (4.0-11.0)
[2021-01-23 16:14] LABS: CALCIUM 9.2 mg/dL (8.5-10.1); CREATININE 0.9 mg/dL (0.6-1.0); GFR 72.6; POTASSIUM 4.2 mmol/L (3.5-5.1)
[2021-01-23 16:20] LABS: ALBUMIN 3.9 g/dL (3.4-5.0); ALBUMIN/GLOBULIN RATIO 1.1 (1.0-1.7); TOTAL BILIRUBIN 0.4 mg/dL (0.2-1.0); TOTAL PROTEIN 7.6 g/dL (6.4-8.2)
[2021-01-23] MEDS ORDERED: IPRATRPIUM/ALBUTEROL 0.5/2.5MG 3 ML NEBU. NEB SCH (17:00)
[2021-01-23] MEDS: IPRATRPIUM/ALBUTEROL 0.5/2.5MG 3 ML NEBU. NEB SCH ×2 (20:29→22:00)
[2021-01-23] MEDS ORDERED: ELECTROLYTE (NON-ICU) PROTOCOL. MC PRN (21:30)
[2021-01-23] MEDS ORDERED: ACETAMINOPHEN 325 MG TABLET. PO PRN (21:30)
[2021-01-23] MEDS ORDERED: oxyCODONE/APAP 5/325 1 TAB TABLET PO PRN ×2 (21:30)
[2021-01-23] MEDS ORDERED: CALCIUM CARBONATE 500 MG TAB.CHEW PO PRN (21:30)
[2021-01-23] MEDS ORDERED: ONDANSETRON PF 4 MG/2 ML VIAL. IVP PRN (21:30)
--- NOTE | 2021-01-23 21:33 | PDOC1 ---
History and Physical Date of Service: DOS: DATE: 01/23/21 TIME: 21:26 Chief Complaint: Problems: (1) Asthma exacerbation Chief Complain: SOB History of Present Illness: HPI: Patient is a 30-year-old female presents saying today with worsening shortness of breath. Patient has a history of asthma and is an active smoker. Patient reports her breathing has been worsening for the past week or so. She is prescribed home inhalers and nebulizers however she has not been able to afford the meds; has been out for approximately 1 month. Her primary care physician used to be able to get them free for her however this is no longer the case for reasons unspecified. On presentation to the emergency room patient was saturating in 90s on room air although in notable respiratory distress. She was given breathing treatments with some improvement. She has not received her Covid vaccines. Denies any known Covid contacts. Past Medical/Surgical History: PMH/PSH: Asthma Allergies: Allergies: Coded Allergies: acetaminophen (Unverified Allergy, Intermediate, 07/05/15) propoxyphene (Unverified Allergy, Intermediate, 07/05/15) zolpidem (Unverified Allergy, Intermediate, 07/05/15) Family History: Family History: Unknown Social History: Social History: Active smoker; occasional alcohol, denies drug use Current Medications: Current Medications Current Medications Dexamethasone Sodium Phosphate (Decadron) 10 mg 1X ONCE IV Last administered on 01/23/21at 13:39; Start 01/23/21 at 13:30; Stop 01/23/21 at 13:31; Status DC Albuterol Sulfate (Ventolin Neb Soln) 10 mg 1X ONCE CONT NEB Last administered on 01/23/21at 13:41; Start 01/23/21 at 13:30; Stop 01/23/21 at 13:31; Status DC Albuterol Sulfate (Ventolin Neb Soln) 10 mg 1X ONCE CONT NEB Last administered on 01/23/21at 15:37; Start 01/23/21 at 15:30; Stop 01/23/21 at 15:31; Status DC Magnesium Sulfate 50 ml @ 25 mls/hr 1X ONCE IV Last administered on 01/23/21at 17:32; Start 01/23/21 at 15:30; Stop 01/23/21 at 17:29; Status DC Sodium Chloride 1,000 ml @ 1,000 mls/hr 1X ONCE IV Last administered on 01/23/21at 17:31; Start 01/23/21 at 15:30; Stop 01/23/21 at 16:29; Status DC Albuterol/ Ipratropium (Duoneb) 3 ml RTQID NEB ; Start 01/23/21 at 17:00; Stop 01/23/21 at 17:15; Status DC Albuterol/ Ipratropium (Duoneb) 3 ml Q4HRS W/A NEB Last administered on 01/23/21at 20:29; Start 01/23/21 at 18:00 Prednisone (Prednisone) 40 mg DAILY PO ; Start 01/24/21 at 09:00 Active Scripts Active Proair Hfa (Albuterol Sulfate) 8.5 Gm Hfa.aer.ad 2 Puff IH PRN Q4-6HRS PRN 21 Days Prednisone 50 Mg Tablet 1 Tab PO DAILY Albuterol Sulfate Neb Soln (Albuterol Sulfate) 1.25 Mg/3 Ml Vial.neb 3 Ml NEB Q6HRS PRN Proair Hfa Inhaler (Albuterol Sulfate) 8.5 Gm Hfa.aer.ad 1 Puff INH PRN Q6HRS PRN Prednisone 50 Mg Tablet 1 Tab PO DAILY Ibuprofen 800 Mg Tablet 800 Mg PO PRN Q6HRS PRN Tobramycin Ophth Drops (Tobramycin Sulfate) 5 Ml Drops 1 Drop QID ROS: Review of Systems Review of System Negative unless noted in HPI Physical Exam: Vital Signs: Vital Signs Date Time Temp Pulse Resp B/P (MAP) Pulse Ox O2 Delivery O2 Flow Rate FiO2 01/23/21 20:56 98 21 115/68 (84) 95 Room Air 01/23/21 12:25 99.2 99.2 Physcial Exam: GEN: Mild distress HEENT: Normal cephalic, atraumatic, external auditory canals are patent EYES: Extraocular muscles are intact, pupil are equally round and reactive to light and accommodation MUSCULOSKELETAL: Well developed , well nourished, good range of motion ENDOCRINE: No thyromegaly was palpated LYMPHATICS: No cervical chain or axillary nodes were noted HEMATOPOIETIC: No bruising NECK: Supple, no JVD, no thyromegaly was noted LUNGS: Coarse breath sounds throughout with mild expiratory wheezing HEART: RRR, S!, S2 present. Peripheral pulses intact, no obvious murmurs noted ABDOMEN: Soft, nontender. Positive bowel sounds, no organomegaly, normal bowel sounds EXTREMITIES: Without clubbing, cyanosis, or edema. Pedal pulses intact. NEUROLOGIC: Normal speech and tone. A&O x 3, moves all extremities, no obvious focal deficits PSYCHIATRIC: Normal affect, normal mood. Stable SKIN: No ulcerations or rashes, good skin turgor, no jaundice VASCULAR: Good capillary refill, neurovascular bundle appears to be intact Labs: Labs: Laboratory Tests Test 01/23/21 15:45 White Blood Count 8.4 x10^3/uL (4.0-11.0) Red Blood Count 4.61 x10^6/uL (3.50-5.40) Hemoglobin 13.6 g/dL (12.0-15.5) Hematocrit 40.3 % (36.0-47.0) Mean Corpuscular Volume 88 fL (79-100) Mean Corpuscular Hemoglobin 30 pg (25-35) Mean Corpuscular Hemoglobin Concent 34 g/dL (31-37) Red Cell Distribution Width 13.8 % (11.5-14.5) Platelet Count 319 x10^3/uL (140-400) Neutrophils (%) (Auto) 82 % (31-73) Lymphocytes (%) (Auto) 14 % (24-48) Monocytes (%) (Auto) 2 % (0-9) Eosinophils (%) (Auto) 2 % (0-3) Basophils (%) (Auto) 1 % (0-3) Neutrophils # (Auto) 6.9 x10^3/uL (1.8-7.7) Lymphocytes # (Auto) 1.1 x10^3/uL (1.0-4.8) Monocytes # (Auto) 0.1 x10^3/uL (0.0-1.1) Eosinophils # (Auto) 0.2 x10^3/uL (0.0-0.7) Basophils # (Auto) 0.1 x10^3/uL (0.0-0.2) Sodium Level 140 mmol/L (136-145) Potassium Level 4.2 mmol/L (3.5-5.1) Chloride Level 105 mmol/L (98-107) Carbon Dioxide Level 25 mmol/L (21-32) Anion Gap 10 (6-14) Blood Urea Nitrogen 10 mg/dL (7-20) Creatinine 0.9 mg/dL (0.6-1.0) Estimated GFR (Cockcroft-Gault) 72.6 BUN/Creatinine Ratio 11 (6-20) Glucose Level 99 mg/dL (70-99) Calcium Level 9.2 mg/dL (8.5-10.1) Magnesium Level 2.0 mg/dL (1.8-2.4) Total Bilirubin 0.4 mg/dL (0.2-1.0) Aspartate Amino Transf (AST/SGOT) 18 U/L (15-37) Alanine Aminotransferase (ALT/SGPT) 27 U/L (14-59) Alkaline Phosphatase 70 U/L (46-116) Total Protein 7.6 g/dL (6.4-8.2) Albumin 3.9 g/dL (3.4-5.0) Albumin/Globulin Ratio 1.1 (1.0-1.7) Laboratory Tests Test 01/23/21 15:45 White Blood Count 8.4 x10^3/uL (4.0-11.0) Red Blood Count 4.61 x10^6/uL (3.50-5.40) Hemoglobin 13.6 g/dL (12.0-15.5) Hematocrit 40.3 % (36.0-47.0) Mean Corpuscular Volume 88 fL (79-100) Mean Corpuscular Hemoglobin 30 pg (25-35) Mean Corpuscular Hemoglobin Concent 34 g/dL (31-37) Red Cell Distribution Width 13.8 % (11.5-14.5) Platelet Count 319 x10^3/uL (140-400) Neutrophils (%) (Auto) 82 % (31-73) Lymphocytes (%) (Auto) 14 % (24-48) Monocytes (%) (Auto) 2 % (0-9) Eosinophils (%) (Auto) 2 % (0-3) Basophils (%) (Auto) 1 % (0-3) Neutrophils # (Auto) 6.9 x10^3/uL (1.8-7.7) Lymphocytes # (Auto) 1.1 x10^3/uL (1.0-4.8) Monocytes # (Auto) 0.1 x10^3/uL (0.0-1.1) Eosinophils # (Auto) 0.2 x10^3/uL (0.0-0.7) Basophils # (Auto) 0.1 x10^3/uL (0.0-0.2) Sodium Level 140 mmol/L (136-145) Potassium Level 4.2 mmol/L (3.5-5.1) Chloride Level 105 mmol/L (98-107) Carbon Dioxide Level 25 mmol/L (21-32) Anion Gap 10 (6-14) Blood Urea Nitrogen 10 mg/dL (7-20) Creatinine 0.9 mg/dL (0.6-1.0) Estimated GFR (Cockcroft-Gault) 72.6 BUN/Creatinine Ratio 11 (6-20) Glucose Level 99 mg/dL (70-99) Calcium Level 9.2 mg/dL (8.5-10.1) Magnesium Level 2.0 mg/dL (1.8-2.4) Total Bilirubin 0.4 mg/dL (0.2-1.0) Aspartate Amino Transf (AST/SGOT) 18 U/L (15-37) Alanine Aminotransferase (ALT/SGPT) 27 U/L (14-59) Alkaline Phosphatase 70 U/L (46-116) Total Protein 7.6 g/dL (6.4-8.2) Albumin 3.9 g/dL (3.4-5.0) Albumin/Globulin Ratio 1.1 (1.0-1.7) Assessment/Plan Assessment/Plan Asthma exacerbation, PUI for COVID-19, tobacco abuse Patient reports worsening shortness of breath Is prescribed home inhalers she thinks albuterol and either Advair or Spiriva Has been out of these for approximately 1 month due to social issues Given breathing treatments in emergency room with improvement Scheduled breathing treatments now Covid testing Starting prednisone burst Given normal labs and imaging we will hold off on antibiotics low threshold to start We will discuss with social work tomorrow about any medication assistance programs Justifications for Admission Other Justification ANURADHA TEJADA MD Jan 23, 2021 21:33
--- NOTE | 2021-01-23 22:43 | NUR ---
Per ED Charge Litzy and [employer] Executive Director Melania, I was advised to downgrade patient to med/surg vs what ED Physician requested. 01/23/2021 @[id number]
[2021-01-23 23:20] VITALS: BP 115/73
[2021-01-24] MEDS ORDERED: diphenhydrAMINE HCL 25 MG CAPSULE PO PRN (00:30)
--- NOTE | 2021-01-24 00:58 | NUR ---
NEB TREATMENT BEING HELD AT THIS TIME PER PROTOCOL PATIENT IS PUI. COVID PCR TEST IN PROCESS. SPOKE TO PHARMACY AND INITIATED VENTOLIN HFA TO BE GIVEN EVERY 4 HOURS PRN. SPACER FOR MDI SENT TO . WILL CONTINUE TO MONITOR FOR COVID TEST AND WILL RESUME NEB TX ONCE PT'S TEST COMEBACK NEGATIVE.
[2021-01-24] MEDS ORDERED: ALBUTEROL SULFATE 8GM INHALER. INH PRN (01:00)
[2021-01-24 03:27] VITALS: BP 102/61
[2021-01-24] MEDS: IPRATRPIUM/ALBUTEROL 0.5/2.5MG 3 ML NEBU. NEB SCH ×4 (06:00→15:38)
[2021-01-24 07:00] VITALS: BP 110/70
[2021-01-24] MEDS ORDERED: predniSONE 20 MG TABLET PO SCH (09:00)
--- NOTE | 2021-01-24 09:07 | PDOC ---
[employer] PROGRESS NOTE Date of Service DOS: DATE: 01/24/21 TIME: 08:56 Chief Complaint Chief Complaint Asthma exacerbation PUI for COVID19 Tobacco abuse History of Present Illness History of Present Illness HPI: Patient is a 30-year-old female presents saying today with worsening shortness of breath. Patient has a history of asthma and is an active smoker. Patient reports her breathing has been worsening for the past week or so. She is prescribed home inhalers and nebulizers however she has not been able to afford the meds; has been out for approximately 1 month. Her primary care physician used to be able to get them free for her however this is no longer the case for reasons unspecified. On presentation to the emergency room patient was saturating in 90s on room air although in notable respiratory distress. She was given breathing treatments with some improvement. She has not received her Covid vaccines. Denies any known Covid contacts. 01/24/21: Patient seen and examined. She states she is still "wheezing". Still waiting for COVID test results. She is not using oxygen therapy. Discussed with RN. Chart reviewed. Vitals/I&O Vitals/I&O: Vital Signs Date Time Temp Pulse Resp B/P (MAP) Pulse Ox O2 Delivery O2 Flow Rate FiO2 01/24/21 07:00 98.0 83 18 110/70 (83) 96 Room Air 98.0 I & O 01/23/21 01/23/21 01/24/21 15:00 23:00 07:00 Intake Total 1050 ml 240 ml Balance 1050 ml 240 ml Physical Exam General: Alert, Oriented X3, Cooperative, No acute distress Heart: Regular rate Lungs: Wheezing Abdomen: Normal bowel sounds Extremities: No clubbing Skin: No rashes Labs Labs: Laboratory Tests Test 01/23/21 15:45 White Blood Count 8.4 x10^3/uL (4.0-11.0) Red Blood Count 4.61 x10^6/uL (3.50-5.40) Hemoglobin 13.6 g/dL (12.0-15.5) Hematocrit 40.3 % (36.0-47.0) Mean Corpuscular Volume 88 fL (79-100) Mean Corpuscular Hemoglobin 30 pg (25-35) Mean Corpuscular Hemoglobin Concent 34 g/dL (31-37) Red Cell Distribution Width 13.8 % (11.5-14.5) Platelet Count 319 x10^3/uL (140-400) Neutrophils (%) (Auto) 82 % (31-73) Lymphocytes (%) (Auto) 14 % (24-48) Monocytes (%) (Auto) 2 % (0-9) Eosinophils (%) (Auto) 2 % (0-3) Basophils (%) (Auto) 1 % (0-3) Neutrophils # (Auto) 6.9 x10^3/uL (1.8-7.7) Lymphocytes # (Auto) 1.1 x10^3/uL (1.0-4.8) Monocytes # (Auto) 0.1 x10^3/uL (0.0-1.1) Eosinophils # (Auto) 0.2 x10^3/uL (0.0-0.7) Basophils # (Auto) 0.1 x10^3/uL (0.0-0.2) Sodium Level 140 mmol/L (136-145) Potassium Level 4.2 mmol/L (3.5-5.1) Chloride Level 105 mmol/L (98-107) Carbon Dioxide Level 25 mmol/L (21-32) Anion Gap 10 (6-14) Blood Urea Nitrogen 10 mg/dL (7-20) Creatinine 0.9 mg/dL (0.6-1.0) Estimated GFR (Cockcroft-Gault) 72.6 BUN/Creatinine Ratio 11 (6-20) Glucose Level 99 mg/dL (70-99) Calcium Level 9.2 mg/dL (8.5-10.1) Magnesium Level 2.0 mg/dL (1.8-2.4) Total Bilirubin 0.4 mg/dL (0.2-1.0) Aspartate Amino Transf (AST/SGOT) 18 U/L (15-37) Alanine Aminotransferase (ALT/SGPT) 27 U/L (14-59) Alkaline Phosphatase 70 U/L (46-116) Total Protein 7.6 g/dL (6.4-8.2) Albumin 3.9 g/dL (3.4-5.0) Albumin/Globulin Ratio 1.1 (1.0-1.7) Review of Systems Review of Systems: Gastrointestinal: No nausea or vomiting. Lungs: Admits shortness of breath and cough. Assessment and Plan Assessmemt and Plan Problems Medical Problems: (1) Asthma exacerbation Status: Acute Plan: 1) Continue albuterol and prednisone 2) Awaiting Covid testing 3) Home medications 4) PTOT 5) Full code Comment Review of Relevant I have reviewed the following items riddhi (where applicable) has been applied. Medications: Current Medications Medications (Trade) Dose Ordered Sig/[place] Route PRN Reason Start Time Stop Time Status Last Admin Dose Admin Dexamethasone Sodium Phosphate (Decadron) 10 mg 1X ONCE IV 01/23/21 13:30 01/23/21 13:31 DC 01/23/21 13:39 Albuterol Sulfate (Ventolin Neb Soln) 10 mg 1X ONCE CONT NEB 01/23/21 13:30 01/23/21 13:31 DC 01/23/21 13:41 Albuterol Sulfate (Ventolin Neb Soln) 10 mg 1X ONCE CONT NEB 01/23/21 15:30 01/23/21 15:31 DC 01/23/21 15:37 Magnesium Sulfate 50 ml @ 25 mls/hr 1X ONCE IV 01/23/21 15:30 01/23/21 17:29 DC 01/23/21 17:32 Sodium Chloride 1,000 ml @ 1,000 mls/hr 1X ONCE IV 01/23/21 15:30 01/23/21 16:29 DC 01/23/21 17:31 Albuterol/ Ipratropium (Duoneb) 3 ml Q4HRS W/A NEB 01/23/21 18:00 01/23/21 20:29 Acetaminophen (Tylenol) 650 mg PRN Q6HRS PRN PO Headaches, Temp > 101.5F 01/23/21 21:30 01/23/21 22:57 Diphenhydramine HCl (Benadryl) 25 mg PRN QHS PRN PO INSOMNIA 01/24/21 00:30 01/24/21 00:36 Albuterol Sulfate (Ventolin Hfa) 2 puff PRN Q4HRS PRN INH SHORTNESS OF BREATH 01/24/21 01:00 01/24/21 00:57 Justifications for Admission Other Justification CRISTINA GRAY III DO Jan 24, 2021 09:07
[2021-01-24 11:00] VITALS: BP 114/56
--- NOTE | 2021-01-24 13:22 | NUR ---
SW following. Discussed with RN, pt from home, room air, regular diet. COVID-19 negative. Med Assist following for self pay status. Pt will need a Goodrx coupon prior to discharge. SW will continue to follow.
[2021-01-24 15:00] VITALS: BP 94/61
--- NOTE | 2021-01-24 17:17 | NUR ---
Discharge Note: MALENA PRATHER [address] Discharge instructions and discharge home medications reviewed with Patient and a copy given. All questions have been answered and understanding verbalized. The following instructions and handouts were given: Patient given education regarding new medication. Discontinued lines and drains: Iv removed per protocol. Patient discharged home, picked up by family member.
== END 2021-01-24 17:00 | disposition home or self-care (01) ==
LOC: ER 12:13 → ED HOLD 18:25 → 5 SOUTH 22:12
PROVIDERS: ADMIT Student in an Organized Health Care Education/Training Program; ATTEND Student in an Organized Health Care Education/Training Program
DX: J45.31 Mild persistent asthma with (acute) exacerbation (principal); Z20.822 Contact with and (suspected) exposure to COVID-19; F17.200 Nicotine dependence, unspecified, uncomplicated; Z90.49 Acquired absence of other specified parts of digestive tract; Z79.899 Other long term (current) drug therapy
CPT/HCPCS: 36415; 71045; 80053; 83735; 85025; 94640; 96365; 96375; 97165; 99284; G0378; J1100; J3475; J7030; J7512; J7613; Q0163; U0003; U0005; G0379

== ENCOUNTER 2021-05-06 16:19 | Emergency (ER) | payer SELFPAY ==
[~2021-05-06] VITALS: Ht 157.5 cm; Wt 72.7 kg
[2021-05-06 17:53] VITALS: BP 94/61
--- NOTE | 2021-05-06 18:08 | PHYS DOC ---
Past Medical History Past Medical History: Asthma, Migraines, Other Additional Past Medical Histor: murmur Past Surgical History: Appendectomy, , Other Additional Past Surgical Histo: umbilical hernia Smoking Status: Current Every Day Smoker Alcohol Use: None Drug Use: None General Adult EDM: Chief Complaint: SORE THROAT HPI: HPI: Patient is a 31 year old female with history of asthma presenting today complaining of 6 out of 10 bilateral ear pain described as throbbing intermittent that began today, she states the ear pain has improved and now she has sore throat. Patient denies any fever coughing or congestion. Denies any chance she could have Covid, she states she was vaccinated against Covid Review of Systems: Review of Systems: Constitutional: Denies fever or chills. [] Eyes: Denies change in visual acuity. [] HENT: Reports sore throat and bilateral ear pain. Denies nasal congestion Respiratory: Denies cough or shortness of breath. [] Cardiovascular: Denies chest pain or edema. [] GI: Denies abdominal pain, nausea, vomiting, bloody stools or diarrhea. [] : Denies dysuria. [] Musculoskeletal: Denies back pain or joint pain. [] Integument: Denies rash. [] Neurologic: Denies headache, focal weakness or sensory changes. [] Psychiatric: Denies depression or anxiety. [] Heart Score: C/O Chest Pain: N/A Risk Factors: Risk Factors: DM, Current or recent (<one month) smoker, HTN, HLP, family history of CAD, obesity. Risk Scores: Score 0 - 3: 2.5% MACE over next 6 weeks - Discharge Home Score 4 - 6: 20.3% MACE over next 6 weeks - Admit for Clinical Observation Score 7 - 10: 72.7% MACE over next 6 weeks - Early Invasive Strategies Allergies: Allergies: Allergies Coded Allergies Type Severity Reaction Last Updated Verified propoxyphene Allergy Unknown 01/24/21 Yes zolpidem Allergy Unknown 01/24/21 Yes Physical Exam: PE: Constitutional: Well developed, well nourished, no acute distress, non-toxic appearance. [] HENT: Normocephalic, atraumatic, bilateral external ears normal, oropharynx moist, no oral exudates, nose normal. [] Eyes: PERRLA, EOMI, conjunctiva normal, no discharge. [] Neck: Normal range of motion, no tenderness, supple, no stridor. [] Cardiovascular:Heart rate regular rhythm, no murmur [] Lungs & Thorax: Bilateral breath sounds clear to auscultation [] Abdomen: Bowel sounds normal, soft, no tenderness, no masses, no pulsatile masses. [] Skin: Warm, dry, no erythema, no rash. [] Back: No tenderness, no CVA tenderness. [] Extremities: No tenderness, no cyanosis, no clubbing, ROM intact, no edema. [] Neurologic: Alert and oriented X 3, normal motor function, normal sensory function, no focal deficits noted. [] Psychologic: Affect normal, judgement normal, mood normal. [] EKG: EKG: [] Radiology/Procedures: Radiology/Procedures: [] Course & Med Decision Making: Course & Med Decision Making Pertinent Labs and Imaging studies reviewed. (See chart for details) This is a 31-year-old female patient presented to the ED today complaining of sore throat and bilateral ear pain that began today. Negative rapid strep. Patient refused a Covid test. Discharge to home. OTC remedies recommended. Follow-up with PCP in 1 to 2 weeks Neftali Disclaimer: Neftali Disclaimer: This electronic medical record was generated, in whole or in part, using a voice recognition dictation system. Departure Departure Impression: Primary Impression: Acute pharyngitis Qualified Codes: J02.9 - Acute pharyngitis, unspecified Disposition: HOME / SELF CARE / HOMELESS Condition: STABLE Referrals: NO PCP (PCP) follow up with your doctor in 1-2 weeks Patient Instructions: Viral Pharyngitis Additional Instructions: You were evaluated in the emergency room for sore throat, your rapid strep test is negative. We encourage you to use [id number] remedies for cold and allergy symptoms. You can also use salt water gargles. Follow-up with your doctor in 1 week. Come back to the ED at any point symptoms worsen MEAGAN AMADO APRN May 06, 2021 18:08
== END 2021-05-06 20:10 | disposition home or self-care (01) ==
LOC: ER 16:19
DX: J02.9 Acute pharyngitis, unspecified (principal); H92.03 Otalgia, bilateral; G43.909 Migraine, unspecified, not intractable, without status migrainosus; J45.909 Unspecified asthma, uncomplicated; F17.200 Nicotine dependence, unspecified, uncomplicated; Z88.8 Allergy status to other drugs, medicaments and biological substances
CPT/HCPCS: 87070; 87880; 99283

== ENCOUNTER 2021-08-07 13:05 | Emergency (ER) | payer SELFPAY ==
[~2021-08-07] VITALS: Ht 162.6 cm; Wt 80.2 kg
[2021-08-07] MEDS ORDERED: IPRATRPIUM/ALBUTEROL 0.5/2.5MG 3 ML NEBU. NEB ONE (13:30)
[2021-08-07] MEDS ORDERED: IV NORMAL SALINE 1000ML BAG 1,000 ML IV ONE (13:45)
[2021-08-07 13:57] LABS: BASO # 0.1 x10^3/uL (0.0-0.2); BASO % 0 % (0-3); EOS % 0 % (0-3); HEMATOCRIT 40.7 % (36.0-47.0); HEMOGLOBIN 12.9 g/dL (12.0-15.5); LYMPH % 8 % (24-48); MEAN CORPUSCULAR HEMOGLOBIN 28 pg (25-35); MEAN CORPUSCULAR HGB CONC 32 g/dL (31-37); MEAN CORPUSCULAR VOLUME 87 fL (79-100); MONO # 0.1 x10^3/uL (0.0-1.1); MONO % 1 % (0-9); NEUT # 10.8 x10^3/uL (1.8-7.7); NEUT % 91 % (31-73); PLATELET COUNT 360 x10^3/uL (140-400); RED BLOOD COUNT 4.68 x10^6/uL (3.50-5.40); RED CELL DISTRIBUTION WIDTH 14.6 % (11.5-14.5); WHITE BLOOD COUNT 11.9 x10^3/uL (4.0-11.0)
[2021-08-07 13:59] LABS: CALCIUM 9.5 mg/dL (8.5-10.1); CREATININE 1.1 mg/dL (0.6-1.0); GFR 57.2; POTASSIUM 4.2 mmol/L (3.5-5.1)
--- NOTE | 2021-08-07 13:59 | RAD ---
XR CHEST 1V Clinical Indication: Reason: Shortness of breath, asthma attack Comparison: AP chest January 23, 2021. Findings: The cardiomediastinal silhouette is normal. Lungs are clear. There is no pneumothorax. No pleural eff usion is appreciated. No acute bone abnormality. IMPRESSION: No acute cardiopulmonary process. Electronically signed by: Erick Moeller MD (08/07/2021 1:57 PM) [id number]
[2021-08-07] MEDS ORDERED: ALBUTEROL SULFATE 2.5 MG/3 ML NEBU. CONT NEB ONE (14:00)
[2021-08-07 14:06] LABS: ALBUMIN 3.7 g/dL (3.4-5.0); ALBUMIN/GLOBULIN RATIO 0.9 (1.0-1.7); TOTAL BILIRUBIN 0.2 mg/dL (0.2-1.0); TOTAL PROTEIN 7.9 g/dL (6.4-8.2)
--- NOTE | 2021-08-07 14:24 | PHYS DOC ---
Past Medical History Past Medical History: Asthma, Migraines, Other Additional Past Medical Histor: murmur, FREQUENT STREP THROAT Past Surgical History: Appendectomy, , Other Additional Past Surgical Histo: umbilical hernia Smoking Status: Never Smoker Alcohol Use: None Drug Use: None General Adult EDM: Chief Complaint: SHORTNESS OF BREATH HPI: HPI: Patient is a 31-year-old female who presents to the emergency department complaining of asthma attack for the past 2 days. Patient reports a lifelong history of asthma problems, patient reports she was seen at the [facility] yesterday and started on 50 mg prednisone which she has taken 2 tablets of 1 yesterday 1 today. Patient reports she uses home nebulizer treatments however today was at work and was only able to use 2 puffs of her ProAir and 2 puffs of her Advair this morning. Patient reports she became increasingly short of breath and noticed she can hear her own wheezing when she decided to leave work and come to the emergency department for evaluation. Zoey ent denies chest pains, chest or nasal congestion, recent fever or chills, patient denies dizziness, syncopal or near syncopal episodes, patient denies abdominal discomfort, nausea, vomiting, or diarrhea. Patient denies other physical complaints or physical concerns. Patient states she does smoke cigarettes daily, denies EtOH use, denies illicit drug use. Patient reports she has received a flu vaccination this year, has also received the COVID vaccination series however has not had a primary care physician recommended booster. Review of Systems: Review of Systems: 14 body systems of review of systems have been reviewed. See HPI for pertinent positives and negative responses, otherwise all other systems are negative, nonpertinent or noncontributory. Constitutional: Negative except as outlined in HPI above. Skin: Negative except as outlined in HPI above. Eyes: Negative except as outlined in HPI above. HENT: Negative except as outlined in HPI above. Respiratory: Negative except as outlined in HPI above. Cardiovascular: Negative except as outlined in HPI above. GI: Negative except as outlined in HPI above. : Negative except as outlined in HPI above. Musculoskeletal: Negative except as outlined in HPI above. Integument: Negative except as outlined in HPI above. Neurologic: Negative except as outlined in HPI above. Endocrine: Negative except as outlined in HPI above. Lymphatic: Negative except as outlined in HPI above. Psychiatric: Negative except as outlined in HPI above. Heart Score: C/O Chest Pain: No Risk Factors: Risk Factors: DM, Current or recent (<one month) smoker, HTN, HLP, family history of CAD, obesity. Risk Scores: Score 0 - 3: 2.5% MACE over next 6 weeks - Discharge Home Score 4 - 6: 20.3% MACE over next 6 weeks - Admit for Clinical Observation Score 7 - 10: 72.7% MACE over next 6 weeks - Early Invasive Strategies Current Medications: Current Medications Medications (Trade) Dose Ordered Sig/[place] Start Time Stop Time Status Last Admin Dose Admin Albuterol Sulfate (Ventolin Neb Soln) 10 mg 1X ONCE 08/07/21 14:00 08/07/21 14:04 DC 08/07/21 14:06 10 MG Albuterol/ Ipratropium (Duoneb) 3 ml 1X ONCE 08/07/21 13:30 08/07/21 13:32 DC 08/07/21 13:49 3 ML Sodium Chloride 1,000 ml @ 1,000 mls/hr 1X ONCE 08/07/21 13:45 08/07/21 14:44 08/07/21 13:46 1,000 MLS/HR Allergies: Allergies: Allergies Coded Allergies Type Severity Reaction Last Updated Verified propoxyphene Allergy Intermediate STIFF NECK/CONTRACTURE 08/07/21 Yes zolpidem Adverse Reaction Intermediate BECOMES EMOTIONAL/CRYING 05/06/21 Yes Physical Exam: PE: Constitutional: Well developed, well nourished, no acute distress, non-toxic appearance. 31-year-old female in no apparent distress. HENT: Normocephalic, atraumatic. Oropharynx is moist, pink, no deep tissue infectious process appreciated, patient speaking in normal voice tones. Bilateral TMs intact and within normal limits, no lymphadenopathy of the head or neck appreciated. Eyes: Conjunctiva normal, no discharge. Neck: Normal range of motion, no stridor. There is no nuchal rigidity, no meningismus signs Cardiovascular: No cyanosis appreciated, distal cap refill less than 2 seconds. Heart sounds are S1-S2 to auscultation, regular rate and rhythm. Lungs & Thorax: Patient is in no respiratory distress, no audible wheezing is appreciated, patient is speaking with full sentences, there is marked inspiratory and expiratory wheezing per auscultation all lung wolfe. Normal work of breathing. No accessory muscle use. Abdomen: Nontender, no abnormalities noted. Skin: Warm, dry, no erythema, no rash. Back: No tenderness, no deformities. Extremities: No tenderness, no cyanosis, no clubbing, ROM intact, no edema. Neurologic: Alert and oriented X 3, normal motor function, normal sensory function, no focal deficits noted. Psychologic: Affect normal, judgement normal, mood normal. Current Patient Data: Labs: Laboratory Tests Test 08/07/21 13:45 White Blood Count 11.9 x10^3/uL (4.0-11.0) H Red Blood Count 4.68 x10^6/uL (3.50-5.40) Hemoglobin 12.9 g/dL (12.0-15.5) Hematocrit 40.7 % (36.0-47.0) Mean Corpuscular Volume 87 fL (79-100) Mean Corpuscular Hemoglobin 28 pg (25-35) Mean Corpuscular Hemoglobin Concent 32 g/dL (31-37) Red Cell Distribution Width 14.6 % (11.5-14.5) H Platelet Count 360 x10^3/uL (140-400) Neutrophils (%) (Auto) 91 % (31-73) H Lymphocytes (%) (Auto) 8 % (24-48) L Monocytes (%) (Auto) 1 % (0-9) Eosinophils (%) (Auto) 0 % (0-3) Basophils (%) (Auto) 0 % (0-3) Neutrophils # (Auto) 10.8 x10^3/uL (1.8-7.7) H Lymphocytes # (Auto) 1.0 x10^3/uL (1.0-4.8) Monocytes # (Auto) 0.1 x10^3/uL (0.0-1.1) Eosinophils # (Auto) 0.0 x10^3/uL (0.0-0.7) Basophils # (Auto) 0.1 x10^3/uL (0.0-0.2) Sodium Level 138 mmol/L (136-145) Potassium Level 4.2 mmol/L (3.5-5.1) Chloride Level 103 mmol/L (98-107) Carbon Dioxide Level 22 mmol/L (21-32) Anion Gap 13 (6-14) Blood Urea Nitrogen 14 mg/dL (7-20) Creatinine 1.1 mg/dL (0.6-1.0) H Estimated GFR (Cockcroft-Gault) 57.2 BUN/Creatinine Ratio 13 (6-20) Glucose Level 158 mg/dL (70-99) H Calcium Level 9.5 mg/dL (8.5-10.1) Magnesium Level 2.0 mg/dL (1.8-2.4) Total Bilirubin 0.2 mg/dL (0.2-1.0) Aspartate Amino Transferase (AST) 11 U/L (15-37) L Alanine Aminotransferase (ALT) 33 U/L (14-59) Alkaline Phosphatase 67 U/L (46-116) Total Protein 7.9 g/dL (6.4-8.2) Albumin 3.7 g/dL (3.4-5.0) Albumin/Globulin Ratio 0.9 (1.0-1.7) L Laboratory Tests 08/07/21 13:45 Laboratory Tests 08/07/21 13:45 Vital Signs: Vital Signs Date Time Temp Pulse Resp B/P (MAP) Pulse Ox O2 Delivery O2 Flow Rate FiO2 08/07/21 13:50 99 08/07/21 13:18 98.4 106 16 140/70 (93) Room Air 98.4 EKG: EKG: EKG performed at 1321 by ED nursing staff shows a sinus tachycardia heart rate 103 bpm without other ectopy, IA interval is 0.132, QTc interval is 0.450, there is no acute STEMI, ACS, or acute ischemia appreciated, EKG interpreted by ED attending physician Dr. Wilkes. Radiology/Procedures: Radiology/Procedures: REASON: Shortness of breath, asthma attack PROCEDURE: CHEST AP ONLY XR CHEST 1V Clinical Indication: Reason: Shortness of breath, asthma attack Comparison: AP chest January 23, 2021. Findings: The cardiomediastinal silhouette is normal. Lungs are clear. There is no pneumothorax. No pleural effusion is appreciated. No acute bone abnormality. IMPRESSION: No acute cardiopulmonary process. Electronically signed by: Erick Moeller MD (08/07/2021 1:57 PM) [id number] Course & Med Decision Making: Course & Med Decision Making Pertinent Labs and Imaging studies reviewed. (See chart for details) 31-year-old female, vital signs reviewed, resents emerged from concerning asthma attack for the past 2 days. Physical examination concerning for acute asthma exacerbation. Will order albuterol/ipratropium bromide nebulizer treatment related to patient's history of cigarette smoking. CBC, CMP, magnesium level, chest x-ray. Will reevaluate after period of time. Patient's chest x-ray is unremarkable, patient's labs are nonconcerning. Upon reevaluation of the patient, patient remains in no apparent respiratory distress, is nontoxic in appearance, there were no audible wheezing appreciated however there remained expiratory wheezing in upper lobes bilaterally. Will order albuterol nebulizer treatment. Upon reevaluation of the patient, patient remains nontoxic in appearance and no respiratory distress, lung sounds were clear. Patient reports she is not out of any of her asthma medications and does not require any refills. Patient has 3 doses remaining on her prednisone regimen. Patient states she feels comfortable going home and wishes to go home at this time, is asking for work excuse. Discussed with the patient all findings and diagnostic testing as well as the need to follow-up with their primary care provider for further evaluation and treatment or return to the ED if any new or worsening symptoms. Strict return precautions were also discussed at length, the patient voiced understanding and agreement with the discharge planning. The patient was nontoxic in appearance, in no apparent distress, and hemodynamically stable at the time of disposition. Neftali Disclaimer: Neftali Disclaimer: This electronic medical record was generated, in whole or in part, using a voice recognition dictation system. Departure Departure Impression: Primary Impression: Asthma exacerbation Qualified Codes: J45.901 - Unspecified asthma with (acute) exacerbation Disposition: 01 HOME / SELF CARE / HOMELESS Condition: GOOD Referrals: NO PCP (PCP) Patient Instructions: Asthma, Adult Additional Instructions: You were seen today in the emergency department for an asthma attack. You are given a nebulizer treatment of albuterol and ipratropium bromide. You are also given an additional albuterol treatment. This has seemed to turn your asthma symptoms around and you are doing much better. You and I have made a joint decision to discharge you to home. You stated you do not require any additional prescriptions for asthma medications at home. Please monitor your breathing/asthma status, follow-up with your primary care physician this week for ongoing symptoms, return to the emergency department immediately for returning asthma, sudden onset shortness of breath, or other concerns. Thank you for visiting our Emergency Department. It was a pleasure taking care of you today in the emergency department and we appreciate you trusting us with your care. If any additional problems come up don't hesitate to return to visit us. Please follow up with your primary care provider so they can plan additional care if needed and know about the problem that you had. If symptoms worsen come back to the Emergency Department. Any concerning symptoms that start such as chest pain, shortness of air, weakness or numbness on one side of the body, running high fevers or any other concerning symptoms return to the ER. EMERGENCY DEPARTMENT GENERAL DISCHARGE INSTRUCTIONS Thank you for coming to [facility] Emergency Department (ED) today and trusting us with you care. We trust that you had a positive experience in our Emergency Department. If you wish to speak to the department management, you may call the Director at [phone]. YOUR FOLLOW UP INSTRUCTIONS ARE FOLLOWS: 1. Do you have a private Doctor? If you do not have a private doctor, please ask for a resource list of physicians or clinics that may be able to assist you with follow up care. 2. The Emergency Physicain has interpreted your x-rays. The X-Ray specialist will also review them. If there is a change in the findings, you will be notified in 48 hours when at all possible. 3. A lab test or culture has been done, your results will be reviewed and you will be notified if you need a change in treatment. ADDITIONAL INSTRUCTIONS AND INFORMATION: 1. Your care today has been supervised by a physician who is specially trained in emergency care. Many problems require more than one evaluation for a complete diagnosis and treatment. We recommend that you schedule your follow up appointment as recommended to ensure complete treatment of you illness or injury. If you are unable to obtain follow up care and continue to have a problem, or if your condition worsens, we recommend that you return to the ED. 2. We are not able to safely determine your condition over the phone nor are we able to give sound medical advice over the phone. For these safety reasons, if you call for medical advice we will ask you to come to the ED for further evaluation. 3. If you have any questions regarding these discharge instructions please call the ED at [phone]. SAFETY INFORMATION: In the interest of safety, wellness, and injury prevention; we encourage you to wear your sealbelt, if you smoke; quite smoking, and we encourage family to use a protective helmet for bicycling and other sporting events that present an increased risk for head injury. IF YOUR SYMPTOMS WORSEN OR NEW SYMPTOMS DEVELOP, OR YOU HAVE CONCERNS ABOUT YOUR CONDITION; OR IF YOUR CONDITION WORSENS WHILE YOU ARE WAITING FOR YOUR FOLLOW UP APPOINTMENT; EITHER CONTACT YOUR PRIMARY CARE DOCTOR, THE PHYSICIAN WHOSE NAME AND NUMBER YOU WERE GIVEN, OR RETURN TO THE ED IMMEDIATELY. GARRETT AMAYA APRN Aug 07, 2021 14:24
[2021-08-07 14:53] VITALS: BP 118/71
== END 2021-08-07 15:59 | disposition home or self-care (01) ==
LOC: ER 13:05
DX: J45.901 Unspecified asthma with (acute) exacerbation (principal); G43.909 Migraine, unspecified, not intractable, without status migrainosus; Z88.8 Allergy status to other drugs, medicaments and biological substances
CPT/HCPCS: 36415; 71045; 80053; 83735; 85025; 94640; 94644; 96360; 96361; 99285; J7030; J7613